=== PATIENT | female | born 1970 | race Caucasian/White ===

== ENCOUNTER → 2017-05-13 | Outpatient (CLI) | payer BC, OTHER ==
[~2017-05-13] MED LIST: AMIT50TA3 PO; HYDR-5688 PO; OXYC1TAB3 PO; ZOLP5TAB PO
--- NOTE | 2017-05-13 13:29 | DIAGNOSTIC IMAGING REPORT ---
RIGHT FOREARM 2 VIEWS CLINICAL HISTORY: Right arm pain. FINDINGS: AP and lateral views of the right forearm are obtained. No prior studies are available for comparison at the time of dictation. The skeletal structures are well mineralized. No fracture is seen. The wrist and elbow joints are grossly maintained. Mild soft tissue swelling is present in the distal forearm. IMPRESSION: Mild soft tissue swelling with no radiographic evidence of right forearm fracture. Electronically signed by: Alex Wu M.D. 05/13/2017 1:27 PM Dictated Date/Time: 05/13/2017 1:26 PM
== END | disposition home or self-care (01) ==
LOC: C.RAD1850 13:04
PROVIDERS: ATTEND Emergency Medicine
DX: S57.81XA Crushing injury of right forearm, initial encounter (principal); X58.XXXA Exposure to other specified factors, initial encounter